=== PATIENT | female | born 1955 | race Caucasian/White ===

== ENCOUNTER → 2023-11-17 13:39 | Outpatient (REF) | payer MEDICARE, OTHER, SELFPAY | LOC: HWRCS 13:39 | PROVIDERS: ATTENDING PHYSICIAN Internal Medicine Cardiovascular Disease; FAMILY PHYSICIAN Family Medicine | DX: I27.20 Pulmonary hypertension, unspecified (principal) | CPT/HCPCS: 93306 ==

== ENCOUNTER → 2024-05-12 13:30 | Outpatient (REF) | payer MEDICARE, OTHER, SELFPAY | LOC: WDC 13:30 | PROVIDERS: ATTENDING PHYSICIAN Family Medicine | DX: Z12.31 Encounter for screening mammogram for malignant neoplasm of breast (principal) | CPT/HCPCS: 77063; 77067 ==

== ENCOUNTER 2025-01-12 10:22 | Inpatient (IN) | payer MEDICARE, OTHER, SELFPAY ==
[2025-01-09 13:52] LABS: Blood Urea Nitrogen 20 mg/dl (7-17); Calcium 10.0 mg/dl (8.4-10.2); Carbon Dioxide 30 mmol/L (22-30); Chloride 103 mmol/L (98-107); Glucose 101 mg/dl (70-99); Potassium 4.5 mmol/L (3.5-5.1); Sodium 139 mmol/L (135-145); eGFR > 60.00
[2025-01-12] VITALS (11 sets, daily range): BP systolic 117–177; BP diastolic 57–83; BMI 25.5
[2025-01-12] MEDS: NORMOSOL-R/PLASMALYTE-A 1000 IV (11:04)
[2025-01-12] MEDS: TYLENOL 1000 MG PO (11:04)
[2025-01-12] MEDS: CELEBREX 200 MG PO (11:04)
[2025-01-12] MEDS: EMEND 40 MG PO (11:53)
[2025-01-12] MEDS: DILAUDID 0.5 MG IV (16:17)
[2025-01-12] MEDS: ZOFRAN 4 MG IV (16:37)
[2025-01-12] MEDS: COMPAZINE 5 MG IV (17:12)
--- NOTE | 2025-01-12 17:58 | PTCARENOTE ---
pt admitted from PACU left patellar fx. AOx3, anxious and drowsy. LCTA RA although shallow. RRR. abd soft NT +BSx4. skin CDI with the exception of left knee mepilex over incision. neurovascular checks WNL. +PP b/l foot pumps b/l. CB in reach-
instructed on use. spouse at bedside. pt is asking to take ASA, cozaar and toprolol at bedtime.
[2025-01-12] MEDS: TYLENOL 650 MG PO (19:49)
[2025-01-12] MEDS: ROXICODONE 5 MG PO (19:49)
[2025-01-12] MEDS: COLACE 100 MG PO (19:50)
[2025-01-12] MEDS: COZAAR 50 MG PO (19:50)
[2025-01-12] MEDS: ASPIRIN 325 MG PO (19:50)
[2025-01-12] MEDS: TOPROL XL 25 MG PO (19:50)
[2025-01-12] MEDS: ANCEF 5 IV (19:50)
[2025-01-12] MEDS: XANAX 0.25 MG PO (22:09)
[2025-01-13] MEDS: TYLENOL 650 MG PO ×2 (00:46→04:59)
[2025-01-13 03:34] VITALS: BP 111/61
[2025-01-13] MEDS: ANCEF 5 IV (04:53)
[2025-01-13 07:21] VITALS: BP 122/58
--- NOTE | 2025-01-13 08:29 | W.PN.ORTHO ---
Addendum entered and electronically signed by Sidney Stoddard MD 01/13/25 09:27:
Patient seen and examined. Agree with below. Knee immobilizer for 6 weeks WBAT.
Original Note:
Today's Communication / Plan
-
Plan for D/c home today after working with PT/OT
Continue WBAT B/L LEs on walker/assistance
KI to remain at all times when OOB. Strict terminal extension of left knee
KI loosened when sedentary to elevate and ice
Pain control
ASA 325mg daily for DVT ppx x 4 weeks
Dressing to remain 7-10 days
[facility] out at 2 weeks (in office)
Outpatient Ortho follow-up 2 weeks (already scheduled) for xrays
D/c plan/order complete for this afternoon
Assessment
.
Distal Motor Intact: Yes
Dressing:
Clean, dry and intact.
Assessment:
ORIF left patella
Overall doing/feeling well
Calf soft, nontender
Plan
.
Surgery / Date: Left patella ORIF/January 27 ([facility])
DVT Prophylaxis: Aspirin
Activity:
Out of bed. WBAT B/L LEs on walker. KI to remain at all times while OOB. May be loosened when sedentary
PT/OT
Discharge Plan: Home (appreciate CM)
Subjective
.
.:
Patient resting comfortably this AM, at bedside. Minimal pain overnight
Vital Signs and Labs
.
Vital Signs and Labs:
Lab Results
01/09/25 10:49
Temp Pulse Resp BP Pulse Ox
97.7 F 73 16 122/58 99
01/13/25 07:21 01/13/25 07:21 01/13/25 07:21 01/13/25 07:21 01/13/25 07:21
--- NOTE | 2025-01-13 08:34 | W.DS.TRANS ---
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
-
Discharge Instructions:
Instructions:
Stand-Alone Forms:
Changes to Home Medications: No
Discharge Medications:
DC Medications w/original date entered in [facility]
Areds 1 tab PO DAILY Supplement 01/05/25
Fish Oil 2 tab PO DAILY Supplement 01/05/25
Osteo Bi-Flex 2 tab PO DAILY Supplement 01/05/25
Vitamin K2 1 tab PO DAILY Supplement 01/05/25
aspirin 81 mg tablet,delayed release 81 mg PO DAILY Blood Clot Prevention/Tx 01/05/25
calcium 1 tab PO DAILY Supplement 01/05/25
cholecalciferol (vitamin D3) 50 mcg (2,000 unit) capsule (Vitamin D3) 50 mcg PO DAILY Supplement 01/05/25
clobetasol 0.05 % topical cream 1 applic topical DAILY PRN eczema 01/05/25
doxylamine succinate 25 mg tablet (Unisom (doxylamine)) 25 mg PO HS Sleep 01/05/25
hydrochlorothiazide 25 mg tablet 25 mg PO DAILY Fluid Retention/Swelling 01/05/25
losartan 50 mg tablet 50 mg PO QPM Blood Pressure 01/05/25
melatonin 10 mg tablet 10 mg PO HS Sleep 01/05/25
metoprolol succinate 25 mg tablet,extended release 24 hr 25 mg PO QPM Blood Pressure 01/05/25
multivitamin 1 tab PO DAILY Supplement 01/05/25
quercetin 1 tab PO DAILY Supplement 01/05/25
red yeast rice 2 tab PO DAILY Supplement 01/05/25
zinc 1 cap PO DAILY Supplement 01/05/25
acetaminophen-codeine 1 tab PO PRN PRN pain 01/09/25
Home Medication Changes
Pending Results: No
[2025-01-13] MEDS: ORETIC 25 MG PO (08:53)
[2025-01-13] MEDS: VITAMIN D3 (cholecalciferol) 50 MCG PO (08:53)
[2025-01-13] MEDS: COLACE 100 MG PO (08:53)
[2025-01-13] MEDS: TYLENOL #3 1 TABLET PO (10:03)
[2025-01-13 11:13] VITALS: BP 110/49
[2025-01-13 11:20] VITALS: BP 104/54; PULSE 76; O2SAT 99
--- NOTE | 2025-01-13 11:26 | CM ---
Addendum entered by Malaika Bowen 01/13/25 11:49:
Patient spoke with CM and requested VN for home care. CM will continue to follow for discharge planning needs.
Plan; home with [facility]
Original Note:
Patient seen at bedside with on [address]. Patient states that she fractured her knee while on vacation and has been managing while waiting for surgery. Patient and stated that she lives in a 2 story home with 12 steps to the
bedroom/bath and she goes up and down once a day on her backside. 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 Patient PCP is Dr. Lilly and she uses the [facility] [address] in [place]. Patient stated that she plans to go home today and will
consider VN after PT/OT assessment. Patient completed IMM and signed form placed on chart. CM will continue to follow for discharge planning needs.
Plan;home with and watch for VN needs.
--- NOTE | 2025-01-13 12:19 | VNURNOTE ---
Home Health Liaison spoke with patient to discuss [facility] nurse/therapy, visits, schedule and homebound status. She is agreeable and understands that visits at home will be 2-3 x per week to assess and teach medical management. Patient is aware that
[facility] will contact them for start of care in 1-2 days after discharge from .
[facility] referral completed in [facility].
[2025-01-13 12:21] VITALS: BP 104/54; PULSE 76; O2SAT 98
== END 2025-01-13 13:07 | disposition home health service (06) | DRG 517 ==
LOC: 2 SOUTH 10:22
PROVIDERS: ADMITTING PHYSICIAN Orthopaedic Surgery; FAMILY PHYSICIAN Family Medicine
PROC: 0QSF04Z Reposition Left Patella with Internal Fixation Device, Open Approach (ICD-10-PCS; 2025-01-12)
DX: M80.0AXA Age-related osteoporosis with current pathological fracture, other site, initial encounter for fracture (principal); I10 Essential (primary) hypertension; E78.00 Pure hypercholesterolemia, unspecified; W19.XXXA Unspecified fall, initial encounter; Y93.9 Activity, unspecified; Y92.59 Other trade areas as the place of occurrence of the external cause; Z96.642 Presence of left artificial hip joint
CPT/HCPCS: 36415; 73560; 76000; 80048; 93005; 97162; 97166

== ENCOUNTER → 2025-05-18 13:54 | Outpatient (REF) | payer MEDICARE, OTHER, SELFPAY | LOC: HWWDC 13:54 | PROVIDERS: ATTENDING PHYSICIAN Family Medicine | DX: Z12.31 Encounter for screening mammogram for malignant neoplasm of breast (principal) | CPT/HCPCS: 77063; 77067 ==